=== PATIENT | female | born 1995 | race Caucasian/White ===

== ENCOUNTER 2018-08-12 22:57 | Emergency (ER) | payer OTHER, MEDICAID, SELFPAY ==
[2018-08-12 23:04] VITALS: BP 118/78; PULSE 135; RESP 20; TEMP 37.7; O2SAT 98; BMI 23.5
[2018-08-12] MEDS: ONDANSETRON 4 MG/2 ML INJ IV (23:33)
[2018-08-12] MEDS: SODIUM CHLORIDE 0.9% 1,000 ML 1000 ML IV (23:33)
[2018-08-12 23:47] LABS: Add Manual Diff / Slide Review NO; Basophils Percent Auto 0.2 % (0-2); Eosinophils Percent Auto 0.1 % (2-4); Hematocrit 45.4 % (36-46); Hemoglobin 15.4 g/dL (12.0-16.0); Lymphocytes Percent Auto 1.9 % (25-40); Mean Corpuscular HGB Conc 33.9 % (30-36); Mean Corpuscular Hemoglobin 29.6 PG (26-34); Mean Corpuscular Volume 87.3 fL (80-100); Neutrophils Absolute Auto 16000 /uL (3000-5900); Neutrophils Percent Auto 93.8 % (50-75); Platelet Count 300 X10^3/uL (150-400); Red Cell Distribution Width 12.7 % (11.6-14.8); White Blood Cell Count 17.1 X10^3/uL (4.5-11.0)
[2018-08-12 23:58] LABS: Alanine Aminotransferase 18 IU/L (9-52); Albumin 4.9 g/dL (3.5-5.0); Albumin Globulin Ratio 1.7 (1.0-2.8); Alkaline Phosphatase 62 U/L (38-126); Aspartate Aminotransferase 20 IU/L (14-36); Bilirubin Total 1.1 mg/dL (0.2-1.3); Blood Urea Nitrogen 14 mg/dL (7-17); Calcium 9.8 mg/dL (8.4-10.2); Carbon Dioxide 20 mmol/L (22-32); Chloride 105 mmol/L (98-107); Estimated Glomerular Filt Rate > 60.0 mL/min (>60); Globulin 2.9 g/dL (1.7-4.1); Glucose 139 mg/dL (70-100); HEMOLYSIS < 15 (0-50); Potassium 3.4 mmol/L (3.4-5.1); Sodium 142 mmol/L (137-145); Total Protein 7.8 g/dL (6.3-8.2)
--- NOTE | 2018-08-12 23:58 | ED.FEMALEGU ---
HPI - Female Genitourinary General Chief complaint: Urogenital-Female Stated complaint: Nausea, dizzy, low back pain Time Seen by Provider: 08/12/18 23:00 Source: patient and family Mode of arrival: ambulatory Limitations: no limitations History of Present Illness HPI Narrative: 22-year-old female nonsmoker presents with her mother and a chief complaint of dysuria, frequency and urgency as well as low back pain, fever and vomiting over the course of the day. Patient recently had a UTI and stopped her antibiotics about retirement through. She doesn't think her symptoms every went away. She denies any pelvic pain or vaginal bleeding or discharge. She says her last period was about 40 days ago and it is not normal for her to have abnormal periods. She is sexually active and uses condoms. She did taken at home test which was normal. She denies runny nose, sore throat or cough. She has low back pain bilaterally MD Complaint: dysuria and UTI Onset (ago): day(s) Severity: moderate Quality: Aching Duration: constant Relieving factors: none Exacerbating factors: none Urinary symptoms: Difficulty Urinating, Dysuria and Frequency Sexual activity: No Patient : No Associated symptoms: fever/chills Related Data Previous Rx's Medication Instructions Recorded cephalexin [Keflex] 500 mg PO QID 10 Days #40 cap 08/13/18 metoclopramide HCl [Reglan] 10 mg PO Q6H #10 tab 08/13/18 promethazine [Phenergan] 25 mg MA Q4-6H PRN #12 each 08/13/18 Allergies Allergy/AdvReac Type Severity Reaction Status Date / Time Quinolones AdvReac Verified 08/12/18 23:08 Review of Systems Review of Systems All systems reviewed & are unremarkable except as noted in HPI and below Constitutional Denies chills, Denies fever(s), Denies lethargy and Denies weakness Eyes Denies change in vision, Denies eye discharge, Denies irritation and Denies loss of vision ENT Ears, Nose, Mouth, and Throat: Denies change in voice, Denies neck pain and Denies sore throat Cardiovascular Denies chest pain, Denies irregular heart rhythm, Denies lightheadedness, Denies palpitations, Denies dyspnea, Denies dyspnea on exertion and Denies orthopnea Respiratory Denies cough, Denies dyspnea, Denies dyspnea on exertion and Denies wheezing Gastrointestinal Gastrointestinal: Denies abdominal pain, Denies change in bowel habits, Denies diarrhea, Denies nausea and Denies vomiting Genitourinary Denies hematuria, Reports urinary frequency, Reports dysuria, Denies flank pain, Denies urinary incontinence and Denies urinary urgency Musculoskeletal Reports back pain and Denies neck pain Integumentary/Breasts Denies pruritus, Denies erythema, Denies rash and Denies wounds Neurologic Denies confusion, Denies loss of vision and Denies weakness Psychiatric Denies anxiety, Denies confusion, Denies depression, Denies homicidal ideation and Denies suicidal ideation Endocrine Denies palpitations Hematologic/Lymphatic Denies easy bruising Allergic/Immunologic Denies wheezing Exam Narrative Exam Narrative: GENERAL: This is a well-nourished, well-developed patient, in mild distress. Appears unwell but nontoxic or septic HEAD: Atraumatic. Normocephalic. No temporal or scalp tenderness. EYES: Pupils equal round and reactive. Extraocular motions intact. No scleral icterus. No injection or drainage. ENT: Nose without bleeding, purulent drainage or septal hematoma. Throat without erythema, tonsillar hypertrophy or exudate. Uvula midline. Airway patent. NECK: Trachea midline. No JVD or lymphadenopathy. Supple, nontender, no meningeal signs. CARDIOVASCULAR: Regular rate and rhythm without murmurs, gallops, or rubs. RESPIRATORY: Clear to auscultation. Breath sounds equal bilaterally. No wheezes, rales, or rhonchi. GASTROINTESTINAL: Abdomen soft, non-tender, nondistended. No hepato-splenomegaly, or palpable masses. No guarding. EXTREMITIES: No clubbing, cyanosis, or edema. No joint tenderness, effusion, or edema noted. BACK: Mild low back tenderness to palpation. No midline or bony tenderness. No rash NEURO: AOx3. SKIN: No rash or erythema. Initial Vital Signs Initial Vital Signs: Vital Signs Temperature 100 F H 08/12/18 23:04 Pulse Rate 135 H 08/12/18 23:04 Respiratory Rate 20 08/12/18 23:04 Blood Pressure 118/78 08/12/18 23:04 Pulse Oximetry 98 08/12/18 23:04 Course Orders Ordered: ED Orders 08/12/18 23:21 Lactate (Lactic Acid) Stat 08/12/18 23:30 Complete Blood Count AUTO DIFF Stat Comprehensive Metabolic Panel Stat Test Serum,Qual Stat Procalcitonin Stat 08/12/18 23:48 Blood Culture Stat Discontinued Medications Sodium Chloride (Normal Saline 0.9%) 1,000 mls @ 1,000 mls/hr IV BOLUS PRN PRN Reason: Fluid replacement Last Infusion: 08/13/18 01:23 Dose: 0 mls/hr Admin: 08/12/18 23:33 Dose: 1,000 mls/hr Ceftriaxone Sodium/Dextrose (Rocephin) 1 gm in 50 mls @ 100 mls/hr IV NOW ONE Stop: 08/13/18 00:57 Last Infusion: 08/13/18 01:22 Dose: 0 mls/hr Admin: 08/13/18 00:31 Dose: 100 mls/hr Sodium Chloride (Normal Saline 0.9%) 1,000 mls @ 1,000 mls/hr IV BOLUS ONE Stop: 08/13/18 02:12 Last Infusion: 08/13/18 02:32 Dose: 0 mls/hr Admin: 08/13/18 01:24 Dose: 1,000 mls/hr Ketorolac Tromethamine (Toradol) 15 mg IV NOW ONE Stop: 08/13/18 01:14 Last Admin: 08/13/18 01:24 Dose: 15 mg Ondansetron HCl (Zofran) 4 mg IV NOW ONE Stop: 08/12/18 23:21 Last Admin: 08/12/18 23:33 Dose: 4 mg Pantoprazole Sodium (Protonix) 40 mg IV NOW ONE Stop: 08/13/18 01:41 Last Admin: 08/13/18 01:41 Dose: 40 mg Vital Signs - 8 hr 08/12/18 23:04 08/13/18 00:18 08/13/18 01:29 Temperature 100 F H 98.8 F 99.4 F Pulse Rate 135 H 128 H 116 H Respiratory Rate 20 18 16 Blood Pressure 118/78 Blood Pressure [Right Arm] 115/65 101/52 L Pulse Oximetry 98 100 98 08/13/18 01:38 08/13/18 02:56 Temperature 99.0 F Pulse Rate 105 H 108 H Respiratory Rate 16 16 Blood Pressure 100/54 L Blood Pressure [Right Arm] 107/54 L Pulse Oximetry 98 MDM - Female Genitourinary Differential Diagnosis Likely urinary tract infection, vaginitis and cystitis Medical Records Attestation: I reviewed the patient's medical records. Lab Data Attestation: I reviewed the patient's lab results. Result diagrams: 08/12/18 23:30 08/12/18 23:30 Lab Results 08/12/18 08/12/18 08/12/18 Range/Units 21:40 23:30 23:30 WBC 17.1 H (4.5-11.0) X10^3/uL RBC 5.20 (4.0-5.2) X10^6/uL Hgb 15.4 (12.0-16.0) g/dL Hct 45.4 (36-46) % MCV 87.3 (80-100) fL MCH 29.6 (26-34) PG MCHC 33.9 (30-36) % RDW 12.7 (11.6-14.8) % Plt Count 300 (150-400) X10^3/uL Neut % (Auto) 93.8 H (50-75) % Lymph % (Auto) 1.9 L (25-40) % [place] % (Auto) 4.0 (3-14) % Eos % (Auto) 0.1 L (2-4) % Baso % (Auto) 0.2 (0-2) % Neut # (Auto) 32186 H (0509-9181) /uL Sodium 142 (137-145) mmol/L Potassium 3.4 (3.4-5.1) mmol/L Chloride 105 (98-107) mmol/L Carbon Dioxide 20 L (22-32) mmol/L BUN 14 (7-17) mg/dL Creatinine 0.70 (0.52-1.04) mg/dL Estimated GFR > 60.0 (>60) mL/min BUN/Creatinine Ratio 20.0 (6-22) Glucose 139 H (70-100) mg/dL Lactate (0.7-2.1) mmol/L Calcium 9.8 (8.4-10.2) mg/dL Total Bilirubin 1.1 (0.2-1.3) mg/dL AST 20 (14-36) IU/L ALT 18 (9-52) IU/L Alkaline Phosphatase 62 (38-126) U/L Total Protein 7.8 (6.3-8.2) g/dL Albumin 4.9 (3.5-5.0) g/dL Globulin 2.9 (1.7-4.1) g/dL Albumin/Globulin Ratio 1.7 (1.0-2.8) Procalcitonin (<0.5) ng/mL Serum , Qual (Negative) Urine Ictotest Negative (Negative) Urine RBC None seen (0-5/HPF) Urine WBC None seen (0-5/HPF) Ur Squamous Epith Cells 0-1 /hpf Urine Bacteria Occasional (0-1) (None) Ur Culture Indicated? Cult not indicated Micro UA Comment Not Reportable 08/12/18 08/12/18 08/13/18 Range/Units 23:30 23:30 00:08 WBC (4.5-11.0) X10^3/uL RBC (4.0-5.2) X10^6/uL Hgb (12.0-16.0) g/dL Hct (36-46) % MCV (80-100) fL MCH (26-34) PG MCHC (30-36) % RDW (11.6-14.8) % Plt Count (150-400) X10^3/uL Neut % (Auto) (50-75) % Lymph % (Auto) (25-40) % [place] % (Auto) (3-14) % Eos % (Auto) (2-4) % Baso % (Auto) (0-2) % Neut # (Auto) (5354-0856) /uL Sodium (137-145) mmol/L Potassium (3.4-5.1) mmol/L Chloride (98-107) mmol/L Carbon Dioxide (22-32) mmol/L BUN (7-17) mg/dL Creatinine (0.52-1.04) mg/dL Estimated GFR (>60) mL/min BUN/Creatinine Ratio (6-22) Glucose (70-100) mg/dL Lactate 1.3 (0.7-2.1) mmol/L Calcium (8.4-10.2) mg/dL Total Bilirubin (0.2-1.3) mg/dL AST (14-36) IU/L ALT (9-52) IU/L Alkaline Phosphatase (38-126) U/L Total Protein (6.3-8.2) g/dL Albumin (3.5-5.0) g/dL Globulin (1.7-4.1) g/dL Albumin/Globulin Ratio (1.0-2.8) Procalcitonin 0.16 (<0.5) ng/mL Serum , Qual Negative (Negative) Urine Ictotest (Negative) Urine RBC (0-5/HPF) Urine WBC (0-5/HPF) Ur Squamous Epith Cells Urine Bacteria (None) Ur Culture Indicated? Micro UA Comment Point of Care Testing Test Results Negative Urine Dip Bedside Urine Glucose Negative Bedside Urine Bilirubin + 1 Bedside Urine Ketone ++ 40 Urine Specific [place] 1.015 Bedside Urine Occult Blood - Negative Bedside Urine pH 8.5 Bedside Urine Protein +/- 15 Bedside Urine Urobilinogen 1+ 2mg Bedside Urine Nitrite - Negative Bedside Urine Leukocytes - Negative Esterase MDM Narrative Medical decision making narrative: 22-year-old non female presents with UTI symptoms after recently being on antibiotics. She does have an elevated white blood cell count and urine here appears unremarkable. She has a very benign exam and signs and symptoms are most consistent with UTI/Pyelo. We discussed advanced imaging CT scan but he elected to treated pyelonephritis and have her follow up closely. She understands return precautions and she and mother have had her questions answered to their apparent satisfaction. Discharge Plan Departure Patient Disposition: Home Clinical Impression: Pyelonephritis Discharge Date/Time: 08/13/18 02:37 Interventions: ED Discharge Assessment Last Done: 08/13/18 02:56 Instructions: DI for Kidney Infection Activity Restrictions/Additional Instructions: 1. Drink plenty of fluids with frequent small sips. 2. For the next 24 hours a clear liquid diet is advised. After that please employ a brat diet which would include bananas, rice, apples, toast. 3. Please take medications as directed. Do not take Reglan (metoclopramide) and Phenergan (promethazine) at the same time, they are similar drugs with similar actions. If you take a Reglan and vomit within 30 minutes you may then take a Phenergan suppository, but if you keep the Reglan down you must wait 6-8 hours until taking another medication 4. Please follow-up with your doctor in the next 1-2 days. Call the office for an appointment. 5. Please return to the emergency Department for any worsening or persistent symptoms, such as increasing pain or fever. Prescriptions: New cephalexin [Keflex] 500 mg capsule 500 mg PO QID 10 Days Qty: 40 RF: 0 promethazine [Phenergan] 25 mg suppository 25 mg MA Q4-6H PRN (Reason: nausea and vomiting) Qty: 12 RF: 0 metoclopramide HCl [Reglan] 10 mg tablet 10 mg PO Q6H Qty: 10 RF: 0
[2018-08-12 23:59] LABS: Pregnancy Test Serum,Qual Negative (Negative)
[2018-08-13 00:04] LABS: RBC Urine None Seen (0-5/HPF); WBC Urine None Seen (0-5/HPF)
[2018-08-13 00:14] LABS: Procalcitonin 0.16 ng/mL (<0.5)
[2018-08-13 00:18] VITALS: BP 115/65; PULSE 128; RESP 18; TEMP 37.1; O2SAT 100
[2018-08-13 00:18] LABS: Bacteria Urine Occasional (0-1); Culture Indicated Urine Cult Not Indicated; Ictotest Urine Negative (Negative); Squamous Epithelial Cell Urine 0-1 /HPF
[2018-08-13 00:28] LABS: Lactate (Lactic Acid) 1.3 mmol/L (0.7-2.1)
[2018-08-13] MEDS: CEFTRIAXONE 1 GM/50 ML FROZ.PIGGY IV (00:31)
--- NOTE | 2018-08-13 00:37 | ED_ITS ---
HPI - Female Genitourinary General Chief complaint: Urogenital-Female Stated complaint: Nausea, dizzy, low back pain Time Seen by Provider: 08/12/18 23:00 Source: patient and family Mode of arrival: ambulatory Limitations: no limitations History of Present Illness HPI Narrative: 22-year-old female nonsmoker presents with her mother and a chief complaint of dysuria, frequency and urgency as well as low back pain, fever and vomiting over the course of the day. Patient recently had a UTI and stopped her antibiotics about long term through. She doesn't think her symptoms every went away. She denies any pelvic pain or vaginal bleeding or discharge. She says her last period was about 40 days ago and it is not normal for her to have abnormal periods. She is sexually active and uses condoms. She did taken at home test which was normal. She denies runny nose, sore throat or cough. She has low back pain bilaterally MD Complaint: dysuria and UTI Onset (ago): day(s) Severity: moderate Quality: Aching Duration: constant Relieving factors: none Exacerbating factors: none Urinary symptoms: Difficulty Urinating, Dysuria and Frequency Sexual activity: No Patient : No Associated symptoms: fever/chills Related Data Previous Rx's Medication Instructions Recorded cephalexin [Keflex] 500 mg PO QID 10 Days #40 cap 08/13/18 metoclopramide HCl [Reglan] 10 mg PO Q6H #10 tab 08/13/18 promethazine [Phenergan] 25 mg CA Q4-6H PRN #12 each 08/13/18 Allergies Allergy/AdvReac Type Severity Reaction Status Date / Time Quinolones AdvReac Verified 08/12/18 23:08 Review of Systems Review of Systems All systems reviewed & are unremarkable except as noted in HPI and below Constitutional Denies chills, Denies fever(s), Denies lethargy and Denies weakness Eyes Denies change in vision, Denies eye discharge, Denies irritation and Denies loss of vision ENT Ears, Nose, Mouth, and Throat: Denies change in voice, Denies neck pain and Denies sore throat Cardiovascular Denies chest pain, Denies irregular heart rhythm, Denies lightheadedness, Denies palpitations, Denies dyspnea, Denies dyspnea on exertion and Denies orthopnea Respiratory Denies cough, Denies dyspnea, Denies dyspnea on exertion and Denies wheezing Gastrointestinal Gastrointestinal: Denies abdominal pain, Denies change in bowel habits, Denies diarrhea, Denies nausea and Denies vomiting Genitourinary Denies hematuria, Reports urinary frequency, Reports dysuria, Denies flank pain , Denies urinary incontinence and Denies urinary urgency Musculoskeletal Reports back pain and Denies neck pain Integumentary/Breasts Denies pruritus, Denies erythema, Denies rash and Denies wounds Neurologic Denies confusion, Denies loss of vision and Denies weakness Psychiatric Denies anxiety, Denies confusion, Denies depression, Denies homicidal ideation and Denies suicidal ideation Endocrine Denies palpitations Hematologic/Lymphatic Denies easy bruising Allergic/Immunologic Denies wheezing Exam Narrative Exam Narrative: GENERAL: This is a well-nourished, well-developed patient, in mild distress. Appears unwell but nontoxic or septic HEAD: Atraumatic. Normocephalic. No temporal or scalp tenderness. EYES: Pupils equal round and reactive. Extraocular motions intact. No scleral icterus. No injection or drainage. ENT: Nose without bleeding, purulent drainage or septal hematoma. Throat without erythema, tonsillar hypertrophy or exudate. Uvula midline. Airway patent. NECK: Trachea midline. No JVD or lymphadenopathy. Supple, nontender, no meningeal signs. CARDIOVASCULAR: Regular rate and rhythm without murmurs, gallops, or rubs. RESPIRATORY: Clear to auscultation. Breath sounds equal bilaterally. No wheezes , rales, or rhonchi. GASTROINTESTINAL: Abdomen soft, non-tender, nondistended. No hepato-splenomegaly , or palpable masses. No guarding. EXTREMITIES: No clubbing, cyanosis, or edema. No joint tenderness, effusion, or edema noted. BACK: Mild low back tenderness to palpation. No midline or bony tenderness. No rash NEURO: AOx3. SKIN: No rash or erythema. Initial Vital Signs Initial Vital Signs: Vital Signs Temperature 100 F H 08/12/18 23:04 Pulse Rate 135 H 08/12/18 23:04 Respiratory Rate 20 08/12/18 23:04 Blood Pressure 118/78 08/12/18 23:04 Pulse Oximetry 98 08/12/18 23:04 Course Orders Ordered: ED Orders 08/12/18 23:21 Lactate (Lactic Acid) Stat 08/12/18 23:30 Complete Blood Count AUTO DIFF Stat Comprehensive Metabolic Panel Stat Test Serum,Qual Stat Procalcitonin Stat 08/12/18 23:48 Blood Culture Stat Discontinued Medications Sodium Chloride (Normal Saline 0.9%) 1,000 mls @ 1,000 mls/hr IV BOLUS PRN PRN Reason: Fluid replacement Last Infusion: 08/13/18 01:23 Dose: 0 mls/hr Admin: 08/12/18 23:33 Dose: 1,000 mls/hr Ceftriaxone Sodium/Dextrose (Rocephin) 1 gm in 50 mls @ 100 mls/hr IV NOW ONE Stop: 08/13/18 00:57 Last Infusion: 08/13/18 01:22 Dose: 0 mls/hr Admin: 08/13/18 00:31 Dose: 100 mls/hr Sodium Chloride (Normal Saline 0.9%) 1,000 mls @ 1,000 mls/hr IV BOLUS ONE Stop: 08/13/18 02:12 Last Infusion: 08/13/18 02:32 Dose: 0 mls/hr Admin: 08/13/18 01:24 Dose: 1,000 mls/hr Ketorolac Tromethamine (Toradol) 15 mg IV NOW ONE Stop: 08/13/18 01:14 Last Admin: 08/13/18 01:24 Dose: 15 mg Ondansetron HCl (Zofran) 4 mg IV NOW ONE Stop: 08/12/18 23:21 Last Admin: 08/12/18 23:33 Dose: 4 mg Pantoprazole Sodium (Protonix) 40 mg IV NOW ONE Stop: 08/13/18 01:41 Last Admin: 08/13/18 01:41 Dose: 40 mg Vital Signs - 8 hr 08/12/18 23:04 08/13/18 00:18 08/13/18 01:29 Temperature 100 F H 98.8 F 99.4 F Pulse Rate 135 H 128 H 116 H Respiratory Rate 20 18 16 Blood Pressure 118/78 Blood Pressure [Right Arm] 115/65 101/52 L Pulse Oximetry 98 100 98 08/13/18 01:38 08/13/18 02:56 Temperature 99.0 F Pulse Rate 105 H 108 H Respiratory Rate 16 16 Blood Pressure 100/54 L Blood Pressure [Right Arm] 107/54 L Pulse Oximetry 98 MDM - Female Genitourinary Differential Diagnosis Likely urinary tract infection, vaginitis and cystitis Medical Records Attestation: I reviewed the patient's medical records. Lab Data Attestation: I reviewed the patient's lab results. Result diagrams: 08/12/18 23:30 08/12/18 23:30 Lab Results 08/12/18 08/12/18 08/12/18 Range/Units 21:40 23:30 23:30 WBC 17.1 H (4.5-11.0) X10^3/uL RBC 5.20 (4.0-5.2) X10^6/uL Hgb 15.4 (12.0-16.0) g/dL Hct 45.4 (36-46) % MCV 87.3 (80-100) fL MCH 29.6 (26-34) PG MCHC 33.9 (30-36) % RDW 12.7 (11.6-14.8) % Plt Count 300 (150-400) X10^3/uL Neut % (Auto) 93.8 H (50-75) % Lymph % (Auto) 1.9 L (25-40) % [place] % (Auto) 4.0 (3-14) % Eos % (Auto) 0.1 L (2-4) % Baso % (Auto) 0.2 (0-2) % Neut # (Auto) 80279 H (6192-1011) /uL Sodium 142 (137-145) mmol/L Potassium 3.4 (3.4-5.1) mmol/L Chloride 105 (98-107) mmol/L Carbon Dioxide 20 L (22-32) mmol/L BUN 14 (7-17) mg/dL Creatinine 0.70 (0.52-1.04) mg/dL Estimated GFR > 60.0 (>60) mL/min BUN/Creatinine Ratio 20.0 (6-22) Glucose 139 H (70-100) mg/dL Lactate (0.7-2.1) mmol/L Calcium 9.8 (8.4-10.2) mg/dL Total Bilirubin 1.1 (0.2-1.3) mg/dL AST 20 (14-36) IU/L ALT 18 (9-52) IU/L Alkaline Phosphatase 62 (38-126) U/L Total Protein 7.8 (6.3-8.2) g/dL Albumin 4.9 (3.5-5.0) g/dL Globulin 2.9 (1.7-4.1) g/dL Albumin/Globulin Ratio 1.7 (1.0-2.8) Procalcitonin (<0.5) ng/mL Serum , Qual (Negative) Urine Ictotest Negative (Negative) Urine RBC None seen (0-5/HPF) Urine WBC None seen (0-5/HPF) Ur Squamous Epith Cells 0-1 /hpf Urine Bacteria Occasional (0-1) (None) Ur Culture Indicated? Cult not indicated Micro UA Comment Not Reportable 08/12/18 08/12/18 08/13/18 Range/Units 23:30 23:30 00:08 WBC (4.5-11.0) X10^3/uL RBC (4.0-5.2) X10^6/uL Hgb (12.0-16.0) g/dL Hct (36-46) % MCV (80-100) fL MCH (26-34) PG MCHC (30-36) % RDW (11.6-14.8) % Plt Count (150-400) X10^3/uL Neut % (Auto) (50-75) % Lymph % (Auto) (25-40) % [place] % (Auto) (3-14) % Eos % (Auto) (2-4) % Baso % (Auto) (0-2) % Neut # (Auto) (4177-4062) /uL Sodium (137-145) mmol/L Potassium (3.4-5.1) mmol/L Chloride (98-107) mmol/L Carbon Dioxide (22-32) mmol/L BUN (7-17) mg/dL Creatinine (0.52-1.04) mg/dL Estimated GFR (>60) mL/min BUN/Creatinine Ratio (6-22) Glucose (70-100) mg/dL Lactate 1.3 (0.7-2.1) mmol/L Calcium (8.4-10.2) mg/dL Total Bilirubin (0.2-1.3) mg/dL AST (14-36) IU/L ALT (9-52) IU/L Alkaline Phosphatase (38-126) U/L Total Protein (6.3-8.2) g/dL Albumin (3.5-5.0) g/dL Globulin (1.7-4.1) g/dL Albumin/Globulin Ratio (1.0-2.8) Procalcitonin 0.16 (<0.5) ng/mL Serum , Qual Negative (Negative) Urine Ictotest (Negative) Urine RBC (0-5/HPF) Urine WBC (0-5/HPF) Ur Squamous Epith Cells Urine Bacteria (None) Ur Culture Indicated? Micro UA Comment Point of Care Testing Test Results Negative Urine Dip Bedside Urine Glucose Negative Bedside Urine Bilirubin + 1 Bedside Urine Ketone ++ 40 Urine Specific [place] 1.015 Bedside Urine Occult Blood - Negative Bedside Urine pH 8.5 Bedside Urine Protein +/- 15 Bedside Urine Urobilinogen 1+ 2mg Bedside Urine Nitrite - Negative Bedside Urine Leukocytes - Negative Esterase MDM Narrative Medical decision making narrative: 22-year-old non female presents with UTI symptoms after recently being on antibiotics. She does have an elevated white blood cell count and urine here appears unremarkable. She has a very benign exam and signs and symptoms are most consistent with UTI/Pyelo. We discussed advanced imaging CT scan but he elected to treated pyelonephritis and have her follow up closely. She understands return precautions and she and mother have had her questions answered to their apparent satisfaction. Discharge Plan Departure Patient Disposition: Home Clinical Impression: Pyelonephritis Discharge Date/Time: 08/13/18 02:37 Interventions: ED Discharge Assessment Last Done: 08/13/18 02:56 Instructions: DI for Kidney Infection Activity Restrictions/Additional Instructions: 1. Drink plenty of fluids with frequent small sips. 2. For the next 24 hours a clear liquid diet is advised. After that please employ a brat diet which would include bananas, rice, apples, toast. 3. Please take medications as directed. Do not take Reglan (metoclopramide) and Phenergan (promethazine) at the same time, they are similar drugs with similar actions. If you take a Reglan and vomit within 30 minutes you may then take a Phenergan suppository, but if you keep the Reglan down you must wait 6-8 hours until taking another medication 4. Please follow-up with your doctor in the next 1-2 days. Call the office for an appointment. 5. Please return to the emergency Department for any worsening or persistent symptoms, such as increasing pain or fever. Prescriptions: New cephalexin [Keflex] 500 mg capsule 500 mg PO QID 10 Days Qty: 40 RF: 0 promethazine [Phenergan] 25 mg suppository 25 mg CA Q4-6H PRN (Reason: nausea and vomiting) Qty: 12 RF: 0 metoclopramide HCl [Reglan] 10 mg tablet 10 mg PO Q6H Qty: 10 RF: 0
[2018-08-13] MEDS: KETOROLAC 60 MG/2 ML VIAL 15 MG IV (01:24)
[2018-08-13] MEDS: SODIUM CHLORIDE 0.9% 1,000 ML 1000 ML IV (01:24)
[2018-08-13 01:29] VITALS: BP 101/52; PULSE 116; RESP 16; TEMP 37.4; O2SAT 98
[2018-08-13 01:38] VITALS: BP 107/54; PULSE 105; RESP 16; O2SAT 98
[2018-08-13] MEDS: PANTOPRAZOLE 40 MG VIAL IV (01:41)
[2018-08-13 02:56] VITALS: BP 100/54; PULSE 108; RESP 16; TEMP 37.2
== END 2018-08-13 02:37 | disposition home or self-care (01) ==
PROVIDERS: Emergency Provider Emergency Medicine
DX: N12 Tubulo-interstitial nephritis, not specified as acute or chronic (principal)
CPT/HCPCS: 36415; 36591; 80053; 81003; 81015; 81025; 83605; 84145; 84703; 85025; 87040; 96361; 96365; 96375; 99284; C9113; J1885; J2405